=== PATIENT | female | born 1995 | race Two or more races ===

== ENCOUNTER 2023-06-24 05:55 | Emergency (ER) | payer OTHER ==
[~2023-06-24] VITALS: Ht 162.6 cm; Wt 109.7 kg
[2023-06-24 06:03] VITALS: TEMP 98
[2023-06-24 06:07] VITALS: BP 135/77; PULSE 88; RESP 20
== END 2023-06-24 06:41 | disposition short-term general hospital (02) ==
LOC: EMS 05:57
DX: O26.893 Other specified pregnancy related conditions, third trimester (principal); O48.0 Post-term pregnancy
CPT/HCPCS: 99285; Z7502